=== PATIENT | female | born 1945 | race African-American/Black ===

== ENCOUNTER 2017-05-22 11:08 | Emergency (ER) | payer MEDICARE, OTHER ==
[~2017-05-22] VITALS: Ht 160 cm; Wt 76.0 kg
[2017-05-22] MEDS ORDERED: IBUP-2028 PO (11:28)
[2017-05-22] MEDS ORDERED: ALBU18HF2 IH (11:28)
[2017-05-22] MEDS ORDERED: HYDR-519 PO (11:28)
[2017-05-22] MEDS ORDERED: CARI350T PO (11:28)
[2017-05-22] MEDS ORDERED: KETOROLAC 60MG/2ML VIAL IM ONE (12:15)
[2017-05-22] MEDS ORDERED: HYDROCODONE/ACETAMINOPHEN 5/325MG TABLET PO ONE (12:15)
[2017-05-22] MEDS ORDERED: DIAZEPAM 2 MG TABLET PO ONE (12:15)
[2017-05-22] MEDS ORDERED: METHOCARBAMOL 500MG TABLET PO ONE (12:15)
[2017-05-22 15:21] VITALS: BP 138/87
== END 2017-05-22 15:22 | disposition home or self-care (01) ==
LOC: ER 11:46
DX: M54.42 Lumbago with sciatica, left side (principal); M54.41 Lumbago with sciatica, right side; G89.29 Other chronic pain; J45.909 Unspecified asthma, uncomplicated; I10 Essential (primary) hypertension; Z98.890 Other specified postprocedural states
CPT/HCPCS: 96372; 99284; J1885